=== PATIENT | female | born 1970 | race Caucasian/White ===

== ENCOUNTER 2016-09-10 21:53 | Emergency (ER) | payer BC ==
[~2016-09-10] VITALS: Ht 170.2 cm; Wt 59.0 kg
[~2016-09-10 21:53] MED LIST: BENZ100C2 PO; DOXY100C2 PO; LORA10TA3 PO; NAPR500T3 PO; RANI150T2 PO
[2016-09-10] MEDS ORDERED: FENTANYL PF 100 MCG/2 ML VIAL. IV PRN (22:15)
--- NOTE | 2016-09-10 22:18 | PHYS DOC ---
Past Medical History Past Medical History: No Pertinent History Past Surgical History: Tubal ligation, Other Additional Past Surgical Histo: Hip surgery, Rib Alcohol Use: None Drug Use: None Adult General Chief Complaint Chief Complaint: ABDOMINAL PAIN HPI HPI Patient is a 45 year old female who presents with sudden onset right lower quadrant abdominal pain. Patient states that her symptoms started tonight and have been intermittent. Patient states that she is getting sharp pains in her right lower quadrant which go up to 9 out of 10. Patient states while at rest they decreased to 2 out of 10. Patient states that as long as she remained still her symptoms seemed to improve, however when she attempts to move this makes her pain worse. Patient denies any associated fever, nausea, vomiting, shortness of breath, diarrhea, or bloody stools. Patient denies any history of similar symptoms. Patient has not taken any medication help with symptoms at this time. Patient has had a tubal ligation but denies any other abdominal surgeries. Review of Systems Review of Systems Constitutional: Denies fever or chills [] Eyes: Denies change in visual acuity, redness, or eye pain [] HENT: Denies nasal congestion or sore throat [] Respiratory: Denies cough or shortness of breath [] Cardiovascular: No additional information not addressed in HPI [] GI: Abdominal pain, denies nausea, vomiting, bloody stools or diarrhea [] : Denies dysuria or hematuria [] Musculoskeletal: Denies back pain or joint pain [] Integument: Denies rash or skin lesions [] Neurologic: Denies headache, focal weakness or sensory changes [] Current Medications Current Medications Current Medications Medications (Trade) Dose Ordered Sig/[facility] Start Time Stop Time Status Last Admin Dose Admin Fentanyl Citrate 50 mcg 50 mcg PRN Q15MIN PRN 09/10/16 22:15 09/11/16 22:14 09/10/16 22:29 50 MCG Info (Do NOT chart on this entry -- for MONITORING) 1 each PRN DAILY PRN 09/10/16 23:00 09/12/16 22:59 Iohexol (Omnipaque 300 Mg/ml) 75 ml 1X ONCE 09/10/16 23:30 09/10/16 23:31 DC 09/10/16 22:59 75 ML Ondansetron HCl (Zofran) 4 mg 1X ONCE 09/10/16 22:30 09/10/16 22:31 DC 09/10/16 22:27 4 MG Sodium Chloride (Iv Sodium Chloride 0.9% 1000ml Bag) 1,000 ml @ 1,000 mls/hr Q1H 09/10/16 22:30 09/10/16 23:29 DC 09/10/16 22:26 1,000 MLS/HR Allergies Allergies Allergies Coded Allergies Type Severity Reaction Last Updated Verified influenza virus vaccine, specific Allergy Severe Anaphylaxis 06/08/13 Yes amoxicillin Allergy Intermediate 09/10/16 Yes Physical Exam Physical Exam Constitutional: Alert, afebrile, appears in pain. [] HENT: Normocephalic, atraumatic, bilateral external ears normal, oropharynx moist, no oral exudates, nose normal. [] Eyes: PERRLA, EOMI, conjunctiva normal, no discharge. [] Neck: Normal range of motion, no tenderness, supple, no stridor. [] Cardiovascular: Tachycardia, regular rhythm, no murmur [] Lungs & Thorax: Bilateral breath sounds clear to auscultation [] Abdomen: Bowel sounds normal, soft, right lower quadrant tenderness to palpation with rebound tenderness, no masses, no pulsatile masses. [] Skin: Warm, dry, no erythema, no rash. [] Back: No tenderness, no CVA tenderness. [] Extremities: No tenderness, no cyanosis, no clubbing, ROM intact, no edema. [] Neurologic: Alert and oriented X 3, normal motor function, normal sensory function, no focal deficits noted. [] Current Patient Data Vital Signs Vital Signs Date Time Temp Pulse Resp B/P Pulse Ox O2 Delivery O2 Flow Rate FiO2 09/10/16 22:29 18 09/10/16 22:09 97.9 105 114/50 96 Room Air 97.9 Lab Values Laboratory Tests Test 09/10/16 22:10 White Blood Count 8.1x10^3/uL (4.0-11.0) Red Blood Count 4.77x10^6/uL (3.50-5.40) Hemoglobin 14.9g/dL (12.0-15.5) Hematocrit 43.9% (36.0-47.0) Mean Corpuscular Volume 92fL (79-100) Mean Corpuscular Hemoglobin 31pg (25-35) Mean Corpuscular Hemoglobin Concent 34g/dL (31-37) Red Cell Distribution Width 12.8% (11.5-14.5) Platelet Count 187x10^3/uL (140-400) Neutrophils (%) (Auto) 50% (31-73) Lymphocytes (%) (Auto) 37% (24-48) Monocytes (%) (Auto) 11% (0-9) H Eosinophils (%) (Auto) 2% (0-3) Basophils (%) (Auto) 1% (0-3) Neutrophils # (Auto) 4.0x10^3uL (1.8-7.7) Lymphocytes # (Auto) 3.0x10^3/uL (1.0-4.8) Monocytes # (Auto) 0.9x10^3/uL (0.0-1.1) Eosinophils # (Auto) 0.2x10^3/uL (0.0-0.7) Basophils # (Auto) 0.1x10^3/uL (0.0-0.2) Sodium Level 137mmol/L (136-145) Potassium Level 3.9mmol/L (3.5-5.1) Chloride Level 103mmol/L (98-107) Carbon Dioxide Level 30mmol/L (21-32) Anion Gap 4 (6-14) L Blood Urea Nitrogen 17mg/dL (7-20) Creatinine 0.8mg/dL (0.6-1.0) Estimated GFR (Cockcroft-Gault) 77.2 BUN/Creatinine Ratio 21 (6-20) H Glucose Level 100mg/dL (70-99) H Calcium Level 8.7mg/dL (8.5-10.1) Total Bilirubin 0.3mg/dL (0.2-1.0) Aspartate Amino Transferase (AST) 14U/L (15-37) L Alanine Aminotransferase (ALT) 17U/L (14-59) Alkaline Phosphatase 60U/L (46-116) Total Protein 7.1g/dL (6.4-8.2) Albumin 3.5g/dL (3.4-5.0) Albumin/Globulin Ratio 1.0 (1.0-1.7) Lipase 182U/L (73-393) Laboratory Tests 09/10/16 22:10 Laboratory Tests 09/10/16 22:10 EKG EKG Not performed [] Radiology/Procedures Radiology/Procedures [facility] [address] [place] [address] IMAGING REPORT Signed PATIENT: ARIELLE OJNES ACCOUNT: [id number] : 1970 LOCATION: ER AGE: 45 SEX: F EXAM STATUS: REG ER ORD. PHYSICIAN: SHEILA JENKINS MD REASON: right lower quadrant abdominal pain PROCEDURE: CT ABD PELV W/ IV CONTRST ONLY Examination: CT of the abdomen pelvis with IV contrast. HISTORY History of sudden onset of right lower quadrant pain. COMPARISON 01/20/2012. TECHNIQUE Axial CT images of the abdomen pelvis were performed with IV contrast. Coronal sagittal reformats were performed. Exposure: One or more of the following dose reduction technique were utilized for this examination: 1. Automated exposure control. 2.Adjustment of MA and /or KV according to patient size. 3. Use of iterative reconstruction technique. Findings: The visualized bibasilar lungs grossly appears unremarkable. No evidence of free air identified in the abdomen. The visualized liver, spleen, adrenals grossly appears unremarkable. The gallbladder is collapsed. The stomach is mildly distended. The visualized pancreas grossly appears unremarkable. The small bowel is nondilated. The appendix grossly appears unremarkable. Feces and gas noted in the colon The bilateral kidneys enhance symmetrically. Heterogeneous appearance of the uterus with a rounded structure identified in the uterus measures 6.2 centimeters probably fibroids. Urinary bladder is mildly distended. The caliber of the aorta grossly appears unremarkable. No evidence of lytic bony destructive lesion. Impression: 1. Partially visualized appendix grossly appears unremarkable. 2. Heterogeneous appearance of the uterus likely fibroid uterus. Ultrasound pelvis can be performed to exclude adnexal pathology. Electronically signed by: Trent Whittington (Sep 10, 2016 23:22:28) DICTATED and SIGNED BY: TRENT WHITTINGTON MD DATE: 09/10/162321 CC: SHEILA JENKINS MD; MARY ANNE DEGROOT MD ~ [] Course & Med Decision Making Course & Med Decision Making Pertinent Labs and Imaging studies reviewed. (See chart for details) Patient was given IV fentanyl, Zofran, Pepcid, and IV fluids. Patient's CT scan did not reveal evidence of an acute surgical cause of patient's symptoms. On reevaluation, patient states that she feels much better at this time. The patient states that she would like to go home. Advised patient follow-up with her primary doctor in the next 1-2 days and her return to the emergency department for any worsening symptoms. Patient was given [place] for prescription to help with any additional pain. Patient voiced understanding and was in agreement with treatment plan. Dragon Disclaimer Dragon Disclaimer This electronic medical record was generated, in whole or in part, using a voice recognition dictation system. Departure Departure Impression: Primary Impression: Abdominal pain Disposition: HOME, SELF-CARE Condition: IMPROVED Referrals: MARY ANNE DEGROOT MD (PCP) Patient Instructions: Abdominal Pain (Nonspecific) Additional Instructions: Follow-up Dr. Degroot in the next 1-2 days. Return to emergency department for any worsening symptoms. Scripts Hydrocodone/Apap 5-325 ([place] 5-325 Tablet)1 Each Tablet1-2 Tab PO Q4-6HRS PRN PAIN #20 TAB Prov:SHEILA JENKINS MD 09/10/16 Problem Qualifiers Primary Impression: Abdominal pain Abdominal location: right lower quadrant Qualified Code: R10.31 - Right lower quadrant pain SHEILA JENKINS MD Sep 10, 2016 22:18
[2016-09-10 22:23] LABS: BASO # 0.1 x10^3/uL (0.0-0.2); BASO % 1 % (0-3); EOS % 2 % (0-3); HEMATOCRIT 43.9 % (36.0-47.0); HEMOGLOBIN 14.9 g/dL (12.0-15.5); LYMPH % 37 % (24-48); MEAN CORPUSCULAR HEMOGLOBIN 31 pg (25-35); MEAN CORPUSCULAR HGB CONC 34 g/dL (31-37); MEAN CORPUSCULAR VOLUME 92 fL (79-100); MONO % 11 % (0-9); NEUT % 50 % (31-73); PLATELET COUNT 187 x10^3/uL (140-400); RED BLOOD COUNT 4.77 x10^6/uL (3.50-5.40); RED CELL DISTRIBUTION WIDTH 12.8 % (11.5-14.5); WHITE BLOOD COUNT 8.1 x10^3/uL (4.0-11.0)
[2016-09-10 22:30] LABS: CALCIUM 8.7 mg/dL (8.5-10.1); CREATININE 0.8 mg/dL (0.6-1.0); GFR 77.2; POTASSIUM 3.9 mmol/L (3.5-5.1)
[2016-09-10] MEDS ORDERED: ONDANSETRON PF 4 MG/2 ML VIAL. IV ONE (22:30)
[2016-09-10] MEDS ORDERED: IV NORMAL SALINE 1000ML BAG 1,000 ML IV SCH (22:30)
[2016-09-10 22:37] LABS: ALBUMIN 3.5 g/dL (3.4-5.0); TOTAL BILIRUBIN 0.3 mg/dL (0.2-1.0); TOTAL PROTEIN 7.1 g/dL (6.4-8.2)
[2016-09-10] MEDS ORDERED: CONTRAST GIVEN MC PRN (23:00)
--- NOTE | 2016-09-10 23:24 | RAD ---
Examination: CT of the abdomen pelvis with IV contrast. HISTORY History of sudden onset of right lower quadrant pain. COMPARISON 01/20/2012. TECHNIQUE Axial CT images of the abdomen pelvis were performed with IV contrast. Coronal sagittal reformats were performed. Exposure: One or more of the following dose reduction technique were utilized for this examination: 1. Automated exposure control. 2.Adjustment of MA and /or KV according to patient size. 3. Use of iterative reconstruction technique. Findings: The visualized bibasilar lungs grossly appears unremarkable. No evidence of free air identified in the abdomen. The visualized liver, spleen, adrenals grossly appears unremarkable. The gallbladder is collapsed. The stomach is mildly distended. The visualized pancreas grossly appears unremarkable. The small bowel is nondilated. The appendix grossly appears unremarkable. Feces and gas noted in the colon The bilateral kidneys enhance symmetrically. Heterogeneous appearance of the uterus with a rounded structure identified in the uterus measures 6.2 centimeters probably fibroids. Urinary bladder is mildly distended. The caliber of the aorta grossly appears unremarkable. No evidence of lytic bony destructive lesion. Impression: 1. Partially visualized appendix grossly appears unremarkable. 2. Heterogeneous appearance of the uterus likely fibroid uterus. Ultrasound pelvis can be performed to exclude adnexal pathology. Electronically signed by: Trent Whittington (Sep 10, 2016 23:22:28)
[2016-09-10] MEDS ORDERED: IOHEXOL 300 MG/ML 75 ML VIAL IV ONE (23:30)
[2016-09-10] MEDS ORDERED: HYDR-971 PO (23:40)
[2016-09-10 23:50] VITALS: BP 100/57
== END 2016-09-10 23:58 | disposition home or self-care (01) ==
LOC: ER 21:53
DX: R10.31 Right lower quadrant pain (principal); Z98.51 Tubal ligation status; Z88.1 Allergy status to other antibiotic agents; Z91.041 Radiographic dye allergy status
CPT/HCPCS: 74177; 80053; 83690; 85027; 96361; 96374; 96375; 99285; J2405; J3010; J7030; Q9967

== ENCOUNTER 2017-02-02 20:27 | Inpatient (IN) | payer BC ==
[~2017-02-02] VITALS: Ht 172.7 cm; Wt 70.4 kg
[~2017-02-02 20:27] MED LIST changes: +BENZ100C15 PO; -BENZ100C2 PO; +HYDR-971 PO
[2017-02-02 21:58] LABS: BASO % 0 % (0-3); EOS % 2 % (0-3); HEMATOCRIT 41.6 % (36.0-47.0); HEMOGLOBIN 13.9 g/dL (12.0-15.5); LYMPH # 2.6 x10^3/uL (1.0-4.8); LYMPH % 30 % (24-48); MEAN CORPUSCULAR HEMOGLOBIN 31 pg (25-35); MEAN CORPUSCULAR HGB CONC 34 g/dL (31-37); MEAN CORPUSCULAR VOLUME 93 fL (79-100); MONO % 10 % (0-9); NEUT % 58 % (31-73); PLATELET COUNT 179 x10^3/uL (140-400); RED BLOOD COUNT 4.45 x10^6/uL (3.50-5.40); RED CELL DISTRIBUTION WIDTH 13.7 % (11.5-14.5); WHITE BLOOD COUNT 8.9 x10^3/uL (4.0-11.0)
[2017-02-02] MEDS ORDERED: ALBUTEROL SULFATE 2.5 MG/3 ML NEBU. NEB ONE (22:00)
[2017-02-02] MEDS ORDERED: ONDANSETRON PF 4 MG/2 ML VIAL. IV ONE (22:00)
[2017-02-02 22:14] LABS: CALCIUM 8.5 mg/dL (8.5-10.1); CREATININE 0.6 mg/dL (0.6-1.0); GFR 107.2; POTASSIUM 3.7 mmol/L (3.5-5.1)
--- NOTE | 2017-02-02 22:14 | PHYS DOC ---
Past Medical History Past Medical History: Pneumonia Past Surgical History: Tubal ligation, Other Additional Past Surgical Histo: Hip surgery, Rib Additional Information: 1 PPD Alcohol Use: None Drug Use: None Adult General Chief Complaint Chief Complaint: CHEST PAIN HPI HPI Patient is a 46 year old female who presents with complaint of chest congestion , cough, and shortness of breath. Patient states that her symptoms have been worsening over the past 3 days. Patient states that she started with a head cold 4 days ago and states that it started and into her chest. Patient states that she has had persistent cough that has been nonproductive. Patient denies any significant past medical history except for previous history of pneumonia. Patient is an active smoker. Patient has not taken any medications except for ibuprofen to help with her symptoms. Patient denies associated fevers or substernal chest pain. Patient states that her chest discomfort worsens with cough. Patient admits to exertional dyspnea. Review of Systems Review of Systems Constitutional: Denies fever or chills [] Eyes: Denies change in visual acuity, redness, or eye pain [] HENT: Denies nasal congestion or sore throat [] Respiratory: Cough, chest congestion[] Cardiovascular: Chest pain, denies edema[] GI: Denies abdominal pain, nausea, vomiting, bloody stools or diarrhea [] : Denies dysuria or hematuria [] Musculoskeletal: Denies back pain or joint pain [] Integument: Denies rash or skin lesions [] Neurologic: Denies headache, focal weakness or sensory changes [] Current Medications Current Medications Current Medications Medications (Trade) Dose Ordered Sig/[facility] Start Time Stop Time Status Last Admin Dose Admin Albuterol Sulfate (Ventolin Neb Soln) 5 mg 1X ONCE 02/02/17 22:00 02/02/17 22:01 DC 02/02/17 22:12 5 MG Doxycycline Hyclate (Vibra-Tab) 100 mg 1X ONCE 02/02/17 23:30 02/02/17 23:31 DC 02/03/17 00:09 100 MG Fentanyl Citrate (Fentanyl 2ml Vial) 50 mcg PRN Q15MIN PRN 02/02/17 22:00 02/03/17 21:59 02/03/17 00:09 50 MCG Ondansetron HCl (Zofran) 4 mg 1X ONCE 02/02/17 22:00 02/02/17 22:01 DC 02/02/17 22:19 4 MG Prednisone (Prednisone) 50 mg 1X ONCE 02/02/17 23:30 02/02/17 23:31 DC 02/03/17 00:09 50 MG Sodium Chloride 1,000 ml @ 1,000 mls/hr Q1H 02/02/17 22:00 02/02/17 23:59 DC 02/02/17 23:25 1,000 MLS/HR Allergies Allergies Allergies Coded Allergies Type Severity Reaction Last Updated Verified influenza virus vaccine, specific Allergy Severe Anaphylaxis 06/08/13 Yes amoxicillin Allergy Intermediate 09/10/16 Yes Physical Exam Physical Exam Constitutional: Alert, afebrile, appears in moderate discomfort. [] HENT: Normocephalic, atraumatic, bilateral external ears normal, oropharynx moist, no oral exudates, nose normal. [] Eyes: PERRLA, EOMI, conjunctiva normal, no discharge. [] Neck: Normal range of motion, no tenderness, supple, no stridor. [] Cardiovascular: Tachycardia, regular rhythm, no murmur [] Lungs & Thorax: Mild to moderate ejection of air movement bilaterally, expiratory wheezes bilaterally, rales[] Abdomen: Bowel sounds normal, soft, no tenderness, no masses, no pulsatile masses. [] Skin: Warm, dry, no erythema, no rash. [] Back: No tenderness, no CVA tenderness. [] Extremities: No tenderness, no cyanosis, no clubbing, ROM intact, no edema. [] Neurologic: Alert and oriented X 3, normal motor function, normal sensory function, no focal deficits noted. [] Current Patient Data Vital Signs Vital Signs Date Time Temp Pulse Resp B/P (MAP) Pulse Ox O2 Delivery O2 Flow Rate FiO2 02/02/17 22:44 33 94 Room Air 02/02/17 22:30 116 102/51 (68) 02/02/17 20:47 98.0 98.0 Lab Values Laboratory Tests Test 02/02/17 21:10 White Blood Count 8.9 x10^3/uL (4.0-11.0) Red Blood Count 4.45 x10^6/uL (3.50-5.40) Hemoglobin 13.9 g/dL (12.0-15.5) Hematocrit 41.6 % (36.0-47.0) Mean Corpuscular Volume 93 fL (79-100) Mean Corpuscular Hemoglobin 31 pg (25-35) Mean Corpuscular Hemoglobin Concent 34 g/dL (31-37) Red Cell Distribution Width 13.7 % (11.5-14.5) Platelet Count 179 x10^3/uL (140-400) Neutrophils (%) (Auto) 58 % (31-73) Lymphocytes (%) (Auto) 30 % (24-48) Monocytes (%) (Auto) 10 % (0-9) H Eosinophils (%) (Auto) 2 % (0-3) Basophils (%) (Auto) 0 % (0-3) Neutrophils # (Auto) 5.2 x10^3uL (1.8-7.7) Lymphocytes # (Auto) 2.6 x10^3/uL (1.0-4.8) Monocytes # (Auto) 0.9 x10^3/uL (0.0-1.1) Eosinophils # (Auto) 0.2 x10^3/uL (0.0-0.7) Basophils # (Auto) 0.0 x10^3/uL (0.0-0.2) D-Dimer (Shameka) 0.32 ug/mlFEU (0.00-0.50) Sodium Level 141 mmol/L (136-145) Potassium Level 3.7 mmol/L (3.5-5.1) Chloride Level 104 mmol/L (98-107) Carbon Dioxide Level 28 mmol/L (21-32) Anion Gap 9 (6-14) Blood Urea Nitrogen 8 mg/dL (7-20) Creatinine 0.6 mg/dL (0.6-1.0) Estimated GFR (Cockcroft-Gault) 107.2 BUN/Creatinine Ratio 13 (6-20) Glucose Level 86 mg/dL (70-99) Calcium Level 8.5 mg/dL (8.5-10.1) Total Bilirubin 0.2 mg/dL (0.2-1.0) Aspartate Amino Transferase (AST) 13 U/L (15-37) L Alanine Aminotransferase (ALT) 23 U/L (14-59) Alkaline Phosphatase 63 U/L (46-116) Total Protein 7.0 g/dL (6.4-8.2) Albumin 3.7 g/dL (3.4-5.0) Albumin/Globulin Ratio 1.1 (1.0-1.7) Laboratory Tests 02/02/17 21:10 Laboratory Tests 02/02/17 21:10 EKG EKG Interpreted by me: Heart rate 109, sinus tachycardia, normal intervals, normal axis, no acute ST/T-wave abnormalities present[] Radiology/Procedures Radiology/Procedures Two-view chest x-ray interpreted by me: Stable left costophrenic blunting, no new infiltrates or effusions, normal cardiac silhouette Course & Med Decision Making Course & Med Decision Making Pertinent Labs and Imaging studies reviewed. (See chart for details) Patient was given IV fluids, albuterol breathing treatments, prednisone, and doxycycline in the emergency department. The patient's lab work is unremarkable. Evaluation status post treatment shows patient with an O2 sat of 85%. Patient also states that she is still having significant shortness of breath with minimal exertion but is holding stable while at rest. The patient was started on supplemental oxygen. Patient will be admitted the hospital for treatment of acute hypoxic respiratory failure secondary to reactive airway disease. Patient admitted to Dr. Muhammad. Bar Disclaimer Bar Disclaimer This electronic medical record was generated, in whole or in part, using a voice recognition dictation system. Departure Departure Impression: Primary Impression: Acute respiratory failure with hypoxia Disposition: ADMITTED INPATIENT Condition: STABLE Referrals: MARY ANNE DEGROOT MD (PCP) SHEILA JENKINS MD Feb 02, 2017 22:14
[2017-02-02] MEDS: IV NORMAL SALINE 1000ML BAG 1,000 ML IV SCH ×2 (22:18→23:25)
[2017-02-02 22:19] LABS: ALBUMIN 3.7 g/dL (3.4-5.0); ALBUMIN/GLOBULIN RATIO 1.1 (1.0-1.7); TOTAL BILIRUBIN 0.2 mg/dL (0.2-1.0)
[2017-02-02] MEDS: fentaNYL PF VIAL 100 MCG/2 ML VIAL IV PRN ×2 (22:24→22:44)
[2017-02-02] MEDS ORDERED: predniSONE 20 MG TABLET PO ONE (23:30)
[2017-02-02] MEDS ORDERED: DOXYCYCLINE HYCLATE 100 MG TABLET PO ONE (23:30)
[2017-02-03] MEDS: fentaNYL PF VIAL 100 MCG/2 ML VIAL IV PRN (00:09)
[2017-02-03 00:50] VITALS: BP 106/48
[2017-02-03] MEDS ORDERED: fentaNYL PF VIAL 100 MCG/2 ML VIAL IV PRN (01:00)
[2017-02-03] MEDS ORDERED: ONDANSETRON PF 4 MG/2 ML VIAL. IV PRN (01:00)
[2017-02-03] MEDS: ACETAMINOPHEN 325 MG TABLET. PO PRN ×2 (01:03→05:11)
[2017-02-03] MEDS: IV NORMAL SALINE 1000ML BAG 1,000 ML IV SCH ×3 (01:03→14:09)
[2017-02-03 03:00] VITALS: BP 98/42
[2017-02-03] MEDS ORDERED: IPRATRPIUM/ALBUTEROL 0.5/2.5MG 3 ML NEBU. ONE (06:17)
--- NOTE | 2017-02-03 06:23 | EKG ---
[facility] [address] [place] [address] Test Date: 2017-02-02 Test Time: 21:25:21 Pat Name: ARIELLE JONES Department: Room: Gender: F [place]: : 1970 Requested By: SHEILA JENKINS Order Number: [id number] Reading MD: Measurements Intervals [place] Rate: 109 P: 82 CT: 154 QRS: 54 QRSD: 82 T: 71 QT: 330 QTc: 446 Interpretive Statements SINUS TACHYCARDIA LEFT ATRIAL ABNORMALITY INCOMPLETE RIGHT BUNDLE BRANCH BLOCK QRS(T) CONTOUR ABNORMALITY CONSIDER ANTEROSEPTAL MYOCARDIAL DAMAGE T ABNORMALITY IN ANTERIOR LEADS ABNORMAL ECG RI6.01 No previous ECG available for comparison
[2017-02-03 07:00] VITALS: BP 110/46
--- NOTE | 2017-02-03 07:29 | RAD ---
Chest, 2 views, 02/02/2017: History: Cough Comparison is made to a study from 06/07/2013. The heart size and pulmonary vascularity are normal. There is unchanged blunting of the left lateral costophrenic angle compatible with scarring. No acute infiltrate is seen. No pleural fluid is evident. Mild spurring is present in the spine. IMPRESSION: No acute abnormality is detected.
[2017-02-03] MEDS: IPRATRPIUM/ALBUTEROL 0.5/2.5MG 3 ML NEBU. NEB SCH ×2 (07:33→11:37)
[2017-02-03] MEDS ORDERED: IBUP-1027 PO (07:59)
[2017-02-03] MEDS ORDERED: PRED-220 PO (09:00)
[2017-02-03] MEDS ORDERED: DOXYCYCLINE HYCLATE 100 MG TABLET PO SCH (09:00)
[2017-02-03] MEDS ORDERED: predniSONE 20 MG TABLET PO SCH (09:00)
[2017-02-03] MEDS ORDERED: IPRA3AMP NEB (09:00)
[2017-02-03] MEDS ORDERED: HYDROcodone/APAP 5/325MG 1 TAB TABLET PO PRN (09:00)
[2017-02-03] MEDS ORDERED: DOXY100T PO (09:00)
[2017-02-03] MEDS ORDERED: IBUPROFEN 400 MG TABLET. PO PRN (09:00)
--- NOTE | 2017-02-03 09:06 | PDOC1 ---
History and Physical Date of Admission Date of Admission DATE: 02/03/17 TIME: 09:00 Identification/Chief Complaint Chief Complaint not getting enough treatment overnight Problems: Source Source: Chart review, Patient History of Present Illness History of Present Illness Patient is a 46 year old female, she is upset about lack of Nebs overnight, and about the food this AM and about her prior hypoxia and not getting 02 placed when her Sa02 was 90%, I cannot get past much history as she is upset. Prior history reviewed of 3 days cough, and shortness of breath. Headache, acute on chronic, BARRIENTOS due to coughing, she reports only seeing Dr. Gallego when she is sick, and has not seen him for 1 year, she has a nebulizer at home, and does think she has COPD. Her persistent cough has been nonproductive. Patient is an active smoker. no meds to help with sx, BARRIENTOS 12/24 Past Medical History Cardiovascular: No pertinent hx Pulmonary: COPD (maybe) GI: No pertinent hx Heme/Onc: No pertinent hx Hepatobiliary: No pertinent hx Psych: No pertinent hx Rheumatologic: No pertinent hx Infectious disease: No pertinent hx ENT: No pertinent hx Renal/: No pertinent hx Endocrine: No pertinent hx Family History Family History: No Significant Social History Smoke: <1 pack per day ALCOHOL: none Drugs: None Current Problem List Problem List Problems Medical Problems: (1) Acute respiratory failure with hypoxia Status: Acute Problems: Current Medications Current Medications Current Medications Sodium Chloride 1,000 ml @ 1,000 mls/hr Q1H IV Last administered on 02/02/17 23:25; Start 02/02/17 at 22:00; Stop 02/02/17 at 23:59; Status DC Fentanyl Citrate (Fentanyl 2ml Vial) 50 mcg PRN Q15MIN PRN IV PAIN GREATER THAN 3/10 Last administered on 02/03/17 00:09; Start 02/02/17 at 22:00; Stop at 02:00; Status DC Albuterol Sulfate (Ventolin Neb Soln) 5 mg 1X ONCE NEB Last administered on 22:12; Start 02/02/17 at 22:00; Stop 02/02/17 at 22:01; Status DC Ondansetron HCl (Zofran) 4 mg 1X ONCE IV Last administered on 02/02/17 22:19 ; Start 02/02/17 at 22:00; Stop 02/02/17 at 22:01; Status DC Doxycycline Hyclate (Vibra-Tab) 100 mg 1X ONCE PO Last administered on 00:09; Start 02/02/17 at 23:30; Stop 02/02/17 at 23:31; Status DC Prednisone (Prednisone) 50 mg 1X ONCE PO Last administered on 02/03/17 00:09 ; Start 02/02/17 at 23:30; Stop 02/02/17 at 23:31; Status DC Ondansetron HCl (Zofran) 4 mg PRN Q8HRS PRN IV NAUSEA/VOMITING; Start 02/03/17 at 01:00; Stop 02/04/17 at 00:59 Fentanyl Citrate (Fentanyl 2ml Vial) 50 mcg PRN Q2HR PRN IV SEVERE PAIN; Start 02/03/17 at 01:00; Stop 02/04/17 at 00:59 Sodium Chloride 1,000 ml @ 150 mls/hr Q6H40M IV Last administered on 08:46; Start 02/03/17 at 00:49; Stop 02/04/17 at 00:48 Acetaminophen (Tylenol) 650 mg PRN Q4HRS PRN PO FEVER Last administered on 02/03 05:11; Start 02/03/17 at 01:00; Stop 02/04/17 at 00:59 Albuterol/ Ipratropium (Duoneb) 3 ml RTQID NEB Last administered on 02/03/17 07:33; Start 02/03/17 at 08:00; Stop 02/04/17 at 07:59 Doxycycline Hyclate (Vibra-Tab) 100 mg BID PO Last administered on 02/03/17 08 :48; Start 02/03/17 at 09:00 Prednisone (Prednisone) 50 mg DAILY PO Last administered on 02/03/17 08:47; Start 02/03/17 at 09:00 Albuterol/ Ipratropium (Duoneb) 3 ml STK-MED ONCE .ROUTE ; Start 02/03/17 at 06: 17; Stop 02/03/17 at 06:18; Status DC Acetaminophen/ Hydrocodone Bitart (Lortab 5/325) 1 tab Q4HRS PRN PO PAIN; Start 02/03/17 at 09:00 Ibuprofen (Motrin) 400 mg PRN Q6HRS PRN PO headaches; Start 02/03/17 at 09:00 Albuterol/ Ipratropium (Duoneb) 3 ml Q4HRS PRN NEB dyspnea; Start 02/03/17 at 09:00; Status UNV Active Scripts Active [place] 5-325 Tablet (Acetaminophen/Hydrocodone Bitart) 1 Each Tablet 1-2 Tab PO Q4-6HRS PRN Reported Ibuprofen 400 Mg Tablet 400 Mg PO PRN Q6HRS PRN Allergies Allergies: Coded Allergies: influenza virus vaccine, specific (Verified Allergy, Severe, Anaphylaxis, 06/08/13) amoxicillin (Verified Allergy, Intermediate, 09/10/16) ROS General: No: Chills, Night Sweats, Fatigue, Malaise, Appetite, Other PSYCHOLOGICAL ROS: No: Anxiety, Behavioral Disorder, Concentration difficultie , Decreased libido, Depression, Disorientation, Hallucinations, Hostility, Irritablity, Memory difficulties, Mood Swings, Obsessive thoughts, Physical abuse, Sexual abuse, Sleep disturbances, Suicidal ideation, Other Eyes: No Blurry vision, No Decreased vision, No Double vision, No Dry eyes, No Excessive tearing, No Eye Pain, No Itchy Eyes, No Loss of vision, No Photophobia , No Scotomata, No Uses contacts, No Uses glasses, No Other HEENT: YES: Heacaches, No: Visual Changes, Hearing change, Nasal congestion, Nasal discharge, Oral lesions, Sinus pain, Sore Throat, Epistaxis, Sneezing, Snoring, Tinnitus, Vertigo, Vocal changes, Other Respiratory: YES: Cough, Pleuritic Pain, SOB with excertion, Tachypnea, Wheezing, No: Hemoptysis, Orthopnea, Shortness of breath, Sputum Changes, Stridor, Other Cardiovascular: No Chest Pain, No Palpitations, No Orthopnea, No Paroxysmal Noc. Dyspnea, No Edema, No Lt Headedness, No Other Gastrointestinal: No Nausea, No Vomiting, No Abdominal Pain, No Diarrhea, No Constipation, No Melena, No Hematochezia, No Other Genitourinary: No Dysuria, No Frequency, No Incontinence, No Hematuria, No Retention, No Discharge, No Urgency, No Pain, No Flank Pain, No Other, No , No , No , No , No , No , No Musculoskeletal: No Gait Disturbance, No Joint Pain, No Joint Stiffness, No Joint Swelling, No Muscle Pain, No Muscular Weakness, No Pain In:, No Swelling In:, No Other Neurological: No Behavorial Changes, No Bowel/Bladder ControlChng, No Confusion , No Dizziness, No Gait Disturbance, No Headaches, No Impaired Coord/balance, No Memory Loss, No Numbness/Tingling, No Seizures, No Speech Problems, No Tremors, No Visual Changes, No Weakness, No Other Skin: No Dry Skin, No Eczema, No Hair Changes, No Lumps, No Mole Changes, No Mottling, No Nail Changes, No Pruritus, No Rash, No Skin Lesion Changes, No Other, No Acne Physical Exam General: Alert, Oriented X3, Cooperative, mild distress HEENT: PERRLA, Mucous membr. moist/pink Lungs: Normal air movement Heart: no gallops, no murmurs Extremities: No edema Neuro: Sensation intact Psych/Mental Status: Other (agitated) Vitals Vitals Vital Signs Date Time Temp Pulse Resp B/P (MAP) Pulse Ox O2 Delivery O2 Flow Rate FiO2 02/03/17 07:33 92 Nasal Cannula 2.0 02/03/17 03:00 97.5 87 18 98/42 (60) 97.5 Labs Labs Laboratory Tests Test 02/02/17 21:10 White Blood Count 8.9 x10^3/uL (4.0-11.0) Red Blood Count 4.45 x10^6/uL (3.50-5.40) Hemoglobin 13.9 g/dL (12.0-15.5) Hematocrit 41.6 % (36.0-47.0) Mean Corpuscular Volume 93 fL (79-100) Mean Corpuscular Hemoglobin 31 pg (25-35) Mean Corpuscular Hemoglobin Concent 34 g/dL (31-37) Red Cell Distribution Width 13.7 % (11.5-14.5) Platelet Count 179 x10^3/uL (140-400) Neutrophils (%) (Auto) 58 % (31-73) Lymphocytes (%) (Auto) 30 % (24-48) Monocytes (%) (Auto) 10 % (0-9) Eosinophils (%) (Auto) 2 % (0-3) Basophils (%) (Auto) 0 % (0-3) Neutrophils # (Auto) 5.2 x10^3uL (1.8-7.7) Lymphocytes # (Auto) 2.6 x10^3/uL (1.0-4.8) Monocytes # (Auto) 0.9 x10^3/uL (0.0-1.1) Eosinophils # (Auto) 0.2 x10^3/uL (0.0-0.7) Basophils # (Auto) 0.0 x10^3/uL (0.0-0.2) D-Dimer (Shameka) 0.32 ug/mlFEU (0.00-0.50) Sodium Level 141 mmol/L (136-145) Potassium Level 3.7 mmol/L (3.5-5.1) Chloride Level 104 mmol/L (98-107) Carbon Dioxide Level 28 mmol/L (21-32) Anion Gap 9 (6-14) Blood Urea Nitrogen 8 mg/dL (7-20) Creatinine 0.6 mg/dL (0.6-1.0) Estimated GFR (Cockcroft-Gault) 107.2 BUN/Creatinine Ratio 13 (6-20) Glucose Level 86 mg/dL (70-99) Calcium Level 8.5 mg/dL (8.5-10.1) Total Bilirubin 0.2 mg/dL (0.2-1.0) Aspartate Amino Transf (AST/SGOT) 13 U/L (15-37) Alanine Aminotransferase (ALT/SGPT) 23 U/L (14-59) Alkaline Phosphatase 63 U/L (46-116) Total Protein 7.0 g/dL (6.4-8.2) Albumin 3.7 g/dL (3.4-5.0) Albumin/Globulin Ratio 1.1 (1.0-1.7) Laboratory Tests Test 02/02/17 21:10 White Blood Count 8.9 x10^3/uL (4.0-11.0) Red Blood Count 4.45 x10^6/uL (3.50-5.40) Hemoglobin 13.9 g/dL (12.0-15.5) Hematocrit 41.6 % (36.0-47.0) Mean Corpuscular Volume 93 fL (79-100) Mean Corpuscular Hemoglobin 31 pg (25-35) Mean Corpuscular Hemoglobin Concent 34 g/dL (31-37) Red Cell Distribution Width 13.7 % (11.5-14.5) Platelet Count 179 x10^3/uL (140-400) Neutrophils (%) (Auto) 58 % (31-73) Lymphocytes (%) (Auto) 30 % (24-48) Monocytes (%) (Auto) 10 % (0-9) Eosinophils (%) (Auto) 2 % (0-3) Basophils (%) (Auto) 0 % (0-3) Neutrophils # (Auto) 5.2 x10^3uL (1.8-7.7) Lymphocytes # (Auto) 2.6 x10^3/uL (1.0-4.8) Monocytes # (Auto) 0.9 x10^3/uL (0.0-1.1) Eosinophils # (Auto) 0.2 x10^3/uL (0.0-0.7) Basophils # (Auto) 0.0 x10^3/uL (0.0-0.2) D-Dimer (Shameka) 0.32 ug/mlFEU (0.00-0.50) Sodium Level 141 mmol/L (136-145) Potassium Level 3.7 mmol/L (3.5-5.1) Chloride Level 104 mmol/L (98-107) Carbon Dioxide Level 28 mmol/L (21-32) Anion Gap 9 (6-14) Blood Urea Nitrogen 8 mg/dL (7-20) Creatinine 0.6 mg/dL (0.6-1.0) Estimated GFR (Cockcroft-Gault) 107.2 BUN/Creatinine Ratio 13 (6-20) Glucose Level 86 mg/dL (70-99) Calcium Level 8.5 mg/dL (8.5-10.1) Total Bilirubin 0.2 mg/dL (0.2-1.0) Aspartate Amino Transf (AST/SGOT) 13 U/L (15-37) Alanine Aminotransferase (ALT/SGPT) 23 U/L (14-59) Alkaline Phosphatase 63 U/L (46-116) Total Protein 7.0 g/dL (6.4-8.2) Albumin 3.7 g/dL (3.4-5.0) Albumin/Globulin Ratio 1.1 (1.0-1.7) VTE Prophylaxis Ordered VTE Prophylaxis Devices: Yes VTE Pharmacological Prophylaxi: No Assessment/Plan Assessment/Plan SIRS, tachypnea and tachycardia, related to COPD, AE w. hypoxia COPD exacerbation, pcn allergy, doxy PO, steroids, nebs PULM consult tobaccoism ongoign headache, known prior, w exacerbation admit obs Pt request DC this AM, will try to accomodate, 6 min walk ordered, doxy and nebs and pred taper, advair I rec. f/u in pulm clinic, need PFT, accurate diagnosis CALE APODACA MD Feb 03, 2017 09:05
[2017-02-03] MEDS ORDERED: ALBUTEROL SULFATE 2.5 MG/3 ML NEBU. NEB PRN (09:15)
[2017-02-03 11:00] VITALS: BP 105/58
[2017-02-03] MEDS ORDERED: FLUT1DIS3 IH (12:19)
--- NOTE | 2017-02-03 13:35 | PDOC ---
Provider Note Provider Note dictated JOE SALGADO MD Feb 03, 2017 13:35
--- NOTE | 2017-02-03 13:50 | CONS ---
DATE OF CONSULTATION: ATTENDING PHYSICIAN: Dr. Cohen. REASON FOR CONSULTATION: Dyspnea, cough. HISTORY OF PRESENT ILLNESS: The patient is a pleasant 46-year-old female who has been a smoker for 20 years, 1 pack per day. She drives a school bus. She presented to the hospital with complaint of a cough and some shortness of breath. The patient states she started with a head cold and had lots of allergies, but then in the last 48 hours she started to have a cough, which was initially productive of thick yellow sputum. No fever, no chills. She had postnasal drainage. She was seen in the Emergency Room because of persistent coughing. Chest x-ray was clear. She was started on antibiotics and she is starting to feel better and wants to go home. She still smokes 1 pack a day. No history of deep vein thrombosis or pulmonary embolism. She did have a trauma to her left ribcage and had a mini thoracotomy many years ago. PAST MEDICAL HISTORY: History of tobacco use, suspect underlying COPD. PAST SURGICAL HISTORY: No recent surgery except past history of left thoracotomy for a trauma to her rib cage. ALLERGIES: AMOXICILLIN, INFLUENZA VIRUS VACCINE. SOCIAL HISTORY: One pack per day for last 20 years. REVIEW OF SYSTEMS: Twelve-point system obtained. Pertinent positives discussed in my history of present illness, otherwise noncontributory. All systems that were negative were reviewed as well. MEDICATIONS: Reviewed as listed in the [facility]AD. SOCIAL HISTORY: Smoker for 20 years, 1 pack per day. PHYSICAL EXAMINATION: VITAL SIGNS: Stable, afebrile, pulse ox 91% on 2 liters and 90% on room air. HEENT: Sclerae nonicteric. NECK: Supple. LUNGS: Had a few occasional rhonchi posteriorly. CARDIOVASCULAR: Regular rate. ABDOMEN: Soft. EXTREMITIES: With no pitting edema. LABORATORY DATA: Reviewed. White cell count 8.9, hemoglobin 13.9, platelets of 179. Chemistries were within normal limits. D-dimer 0.32. Chest x-ray was clear. IMPRESSION: 1. Acute purulent bronchitis with no definite pneumonia on the chest x-ray. 2. Mild exacerbation of chronic obstructive pulmonary disease, triggered by acute bronchitis. She has ongoing tobaccoism. RECOMMENDATIONS: 1. The patient feels clinically better. She could be discharged home on p.o. antibiotics. 2. Steroid taper. 3. Smoking cessation counseling provided. She plans to cut back on cigarettes. 4. She is updated on pneumonia vaccine. JOE SALGADO MD DR: TULIO/ketty JOB#: [id number] / [id number]
== END 2017-02-03 14:55 | disposition home or self-care (01) | DRG 189 ==
LOC: ER 20:27 → 5 NORTH 23:40
PROVIDERS: ADMIT Internal Medicine; ATTEND Internal Medicine
DX: J96.01 Acute respiratory failure with hypoxia (principal); J44.0 Chronic obstructive pulmonary disease with (acute) lower respiratory infection; R65.10 Systemic inflammatory response syndrome (SIRS) of non-infectious origin without acute organ dysfunction; J44.1 Chronic obstructive pulmonary disease with (acute) exacerbation; F17.210 Nicotine dependence, cigarettes, uncomplicated; J20.9 Acute bronchitis, unspecified; Z87.01 Personal history of pneumonia (recurrent); Z88.0 Allergy status to penicillin; Z98.51 Tubal ligation status; Z88.1 Allergy status to other antibiotic agents; Z88.7 Allergy status to serum and vaccine
CPT/HCPCS: 36415; 71020; 80053; 85025; 85379; 93005; 94250; 94620; 94640; 94760; 96361; 96374; 96375; 99406; J2405; J3010; J7030; J7512; J7613; J7620; 99285-25

== ENCOUNTER 2017-10-14 19:40 | Inpatient (IN) | payer BC ==
[2017-10-14] MEDS: IPRATRPIUM/ALBUTEROL 0.5/2.5MG 3 ML NEBU. NEB (20:22)
[2017-10-14 20:42] LABS: BASO % 0 % (0-3); EOS % 0 % (0-3); HEMATOCRIT 40.4 % (36.0-47.0); HEMOGLOBIN 13.8 g/dL (12.0-15.5); LYMPH # 0.5 x10^3/uL (1.0-4.8); LYMPH % 4 % (24-48); MEAN CORPUSCULAR HEMOGLOBIN 32 pg (25-35); MEAN CORPUSCULAR HGB CONC 34 g/dL (31-37); MEAN CORPUSCULAR VOLUME 92 fL (79-100); MONO # 0.4 x10^3/uL (0.0-1.1); MONO % 4 % (0-9); NEUT # 10.5 x10^3uL (1.8-7.7); NEUT % 92 % (31-73); PLATELET COUNT 158 x10^3/uL (140-400); RED CELL DISTRIBUTION WIDTH 13.8 % (11.5-14.5); WHITE BLOOD COUNT 11.5 x10^3/uL (4.0-11.0)
[2017-10-14] MEDS: ONDANSETRON PF 4 MG/2 ML VIAL. IV (20:42)
[2017-10-14] MEDS: methylPREDNISolone SOD SUCC PF 125 MG/2 ML VIAL. IV (20:42)
[2017-10-14] MEDS: MORPHINE SULFATE 4 MG/ML DISP.SYRIN. IV (20:43)
[2017-10-14 20:45] LABS: ADD MAN DIFF? YES
[2017-10-14 21:02] LABS: LACTIC ACID 3.7 mmol/L (0.4-2.0)
[2017-10-14 21:10] LABS: % BANDS 4 % (0-9); % LYMPHS 4 % (24-48); % MONOS 2 % (0-10); % SEGS 90 % (35-66)
[2017-10-14 21:11] LABS: PLT ESTIMATE ADEQUATE (ADEQUATE)
[2017-10-14 21:14] LABS: ANION GAP 13 (6-14); BLOOD UREA NITROGEN 11 mg/dL (7-20); BUN/CREATININE RATIO 12 (6-20); CALCIUM 8.5 mg/dL (8.5-10.1); CARBON DIOXIDE 25 mmol/L (21-32); CHLORIDE 100 mmol/L (98-107); CREATININE 0.9 mg/dL (0.6-1.0); GFR 66.8; GLUCOSE 225 mg/dL (70-99); SODIUM 138 mmol/L (136-145)
[2017-10-14 21:21] LABS: ALBUMIN 3.2 g/dL (3.4-5.0); ALBUMIN/GLOBULIN RATIO 0.9 (1.0-1.7); ALK PHOS 57 U/L (46-116); ALT (SGPT) 17 U/L (14-59); AST (SGOT) 16 U/L (15-37); TOTAL BILIRUBIN 0.2 mg/dL (0.2-1.0); TOTAL PROTEIN 6.6 g/dL (6.4-8.2)
[2017-10-14 21:21] LABS: TROPONINI < 0.017 ng/mL (0.000-0.055)
[2017-10-14] MEDS: IV NORMAL SALINE 1000ML BAG 1,000 ML IV ×2 (21:27→23:52)
[2017-10-14 21:30] LABS: BILIRUBIN,URINE NEGATIVE (NEG); CLARITY,URINE CLEAR; COLOR,URINE YELLOW; GLUCOSE,URINE 250 mg/dL (NEG); NITRITE,URINE NEGATIVE (NEG); PH,URINE 5.5; PROTEIN,URINE NEGATIVE (NEG-TRACE); UROBILINOGEN,URINE 0.2 mg/dL (0.2 mg/dL)
[2017-10-14] MEDS ORDERED: ONDANSETRON PF 4 MG/2 ML VIAL. IV (21:30)
[2017-10-14] MEDS ORDERED: fentaNYL PF VIAL 100 MCG/2 ML VIAL IV (21:30)
[2017-10-14 21:41] LABS: BACTERIA,URINE FEW /HPF (0-FEW); RBC,URINE 0 /HPF (0-2); SQUAMOUS EPITHELIAL CELL,UR OCC /LPF; WBC,URINE OCC /HPF (0-4)
[2017-10-14] MEDS ORDERED: DEXTROSE 50% 25 GM / 50ML DISP.SYRIN. IV (22:45)
[2017-10-14] MEDS: AZITHROMYCIN 250 MG TABLET. PO (23:15)
[2017-10-15] MEDS: POTASSIUM CHLORIDE 20 MEQ TABLET.ER. PO ×2 (00:07→08:43)
[2017-10-15] MEDS: guaiFENesin DM 200MG/20MG 10 ML SYRUP PO ×4 (00:09→21:37)
[2017-10-15] MEDS: NICOTINE 21MG PATCH. TD (00:09)
[2017-10-15 00:15] LABS: POC GLUCOSE 177 mg/dL (70-99)
[2017-10-15 01:50] LABS: LACTIC ACID 1.8 mmol/L (0.4-2.0)
[2017-10-15 03:24] LABS: ADD MAN DIFF? NO
[2017-10-15 03:34] LABS: BASO % 0 % (0-3); EOS % 0 % (0-3); HEMATOCRIT 37.6 % (36.0-47.0); HEMOGLOBIN 12.9 g/dL (12.0-15.5); LYMPH # 0.5 x10^3/uL (1.0-4.8); LYMPH % 5 % (24-48); MEAN CORPUSCULAR HEMOGLOBIN 32 pg (25-35); MEAN CORPUSCULAR HGB CONC 34 g/dL (31-37); MEAN CORPUSCULAR VOLUME 92 fL (79-100); MONO # 0.3 x10^3/uL (0.0-1.1); MONO % 3 % (0-9); NEUT # 10.1 x10^3uL (1.8-7.7); NEUT % 92 % (31-73); PLATELET COUNT 140 x10^3/uL (140-400); RED BLOOD COUNT 4.07 x10^6/uL (3.50-5.40); RED CELL DISTRIBUTION WIDTH 13.4 % (11.5-14.5); WHITE BLOOD COUNT 10.9 x10^3/uL (4.0-11.0)
[2017-10-15 03:45] LABS: ANION GAP 8 (6-14); BLOOD UREA NITROGEN 11 mg/dL (7-20); CARBON DIOXIDE 27 mmol/L (21-32); CHLORIDE 104 mmol/L (98-107); CREATININE 0.7 mg/dL (0.6-1.0); GFR 89.3; GLUCOSE 161 mg/dL (70-99); POTASSIUM 3.6 mmol/L (3.5-5.1); SODIUM 139 mmol/L (136-145)
[2017-10-15] MEDS: ALBUTEROL SULFATE 2.5 MG/3 ML NEBU. NEB (04:50)
[2017-10-15] MEDS: HYDROcodone/CHLORPHEN POLIS 5 ML SUS.ER.12H PO ×2 (06:00→23:58)
[2017-10-15] MEDS: ACETAMINOPHEN 325 MG TABLET. PO ×3 (06:39→20:36)
[2017-10-15] MEDS: IPRATRPIUM/ALBUTEROL 0.5/2.5MG 3 ML NEBU. NEB ×4 (07:21→21:00)
[2017-10-15] MEDS: BUDESONIDE 0.5 MG/2 ML NEBU. NEB ×2 (07:21→21:00)
[2017-10-15 08:35] LABS: POC GLUCOSE 166 mg/dL (70-99)
[2017-10-15] MEDS: BENZONATATE 100 MG CAPSULE. PO ×3 (08:42→20:36)
[2017-10-15] MEDS: AZITHROMYCIN 250 MG TABLET. PO (08:42)
[2017-10-15] MEDS: methylPREDNISolone SOD SUCC PF 40 MG/ML VIAL. IV ×2 (08:42→20:37)
[2017-10-15] MEDS: INSULIN LISPRO 300 UNITS/3 ML INSULN.PEN. SQ ×4 (08:47→20:43)
[2017-10-15 11:35] LABS: POC GLUCOSE 114 mg/dL (70-99)
[2017-10-15] MEDS: LACTOBACILLUS RHAMNOSUS GG 1 CAPSULE. PO ×2 (15:36→20:36)
[2017-10-15 17:28] LABS: POC GLUCOSE 150 mg/dL (70-99)
[2017-10-15 20:14] LABS: POC GLUCOSE 130 mg/dL (70-99)
[2017-10-16] MEDS: INSULIN LISPRO 300 UNITS/3 ML INSULN.PEN. SQ ×4 (07:30→21:00)
[2017-10-16] MEDS: IPRATRPIUM/ALBUTEROL 0.5/2.5MG 3 ML NEBU. NEB ×5 (07:37→22:00)
[2017-10-16] MEDS: BUDESONIDE 0.5 MG/2 ML NEBU. NEB ×2 (07:37→18:15)
[2017-10-16 07:48] LABS: POC GLUCOSE 108 mg/dL (70-99)
[2017-10-16] MEDS: methylPREDNISolone SOD SUCC PF 40 MG/ML VIAL. IV ×2 (10:20→20:16)
[2017-10-16] MEDS: AZITHROMYCIN 250 MG TABLET. PO (10:20)
[2017-10-16] MEDS: BENZONATATE 100 MG CAPSULE. PO ×3 (10:21→20:16)
[2017-10-16] MEDS: POTASSIUM CHLORIDE 20 MEQ TABLET.ER. PO (10:21)
[2017-10-16] MEDS: LACTOBACILLUS RHAMNOSUS GG 1 CAPSULE. PO ×2 (10:21→20:16)
[2017-10-16 11:27] LABS: POC GLUCOSE 132 mg/dL (70-99)
[2017-10-16] MEDS: PROMETH/CODEINE 6.25/10MG 5 ML SYRUP. PO ×2 (13:29→22:36)
[2017-10-16 16:44] LABS: POC GLUCOSE 156 mg/dL (70-99)
[2017-10-16 23:27] LABS: POC GLUCOSE 126 mg/dL (70-99)
[2017-10-17] MEDS: PROMETH/CODEINE 6.25/10MG 5 ML SYRUP. PO ×3 (03:50→20:21)
[2017-10-17 04:50] LABS: HEMOGLOBIN 12.7 g/dL (12.0-15.5); MEAN CORPUSCULAR HEMOGLOBIN 31 pg (25-35); MEAN CORPUSCULAR HGB CONC 34 g/dL (31-37); MEAN CORPUSCULAR VOLUME 93 fL (79-100); PLATELET COUNT 171 x10^3/uL (140-400); RED BLOOD COUNT 4.11 x10^6/uL (3.50-5.40); RED CELL DISTRIBUTION WIDTH 13.8 % (11.5-14.5); WHITE BLOOD COUNT 12.3 x10^3/uL (4.0-11.0)
[2017-10-17 05:29] LABS: ALBUMIN/GLOBULIN RATIO 0.9 (1.0-1.7); ALK PHOS 55 U/L (46-116); ALT (SGPT) 23 U/L (14-59); ANION GAP 9 (6-14); AST (SGOT) 19 U/L (15-37); BLOOD UREA NITROGEN 14 mg/dL (7-20); BUN/CREATININE RATIO 23 (6-20); CALCIUM 8.6 mg/dL (8.5-10.1); CARBON DIOXIDE 28 mmol/L (21-32); CHLORIDE 103 mmol/L (98-107); CREATININE 0.6 mg/dL (0.6-1.0); GFR 106.7; GLUCOSE 147 mg/dL (70-99); POTASSIUM 4.7 mmol/L (3.5-5.1); SODIUM 140 mmol/L (136-145); TOTAL BILIRUBIN 0.2 mg/dL (0.2-1.0); TOTAL PROTEIN 6.3 g/dL (6.4-8.2)
[2017-10-17] MEDS: INSULIN LISPRO 300 UNITS/3 ML INSULN.PEN. SQ ×4 (07:30→20:55)
[2017-10-17] MEDS: BUDESONIDE 0.5 MG/2 ML NEBU. NEB ×2 (07:35→20:31)
[2017-10-17] MEDS: IPRATRPIUM/ALBUTEROL 0.5/2.5MG 3 ML NEBU. NEB ×4 (07:35→20:31)
[2017-10-17] MEDS: POTASSIUM CHLORIDE 20 MEQ TABLET.ER. PO (08:00)
[2017-10-17 08:28] LABS: POC GLUCOSE 123 mg/dL (70-99)
[2017-10-17] MEDS: LACTOBACILLUS RHAMNOSUS GG 1 CAPSULE. PO ×2 (08:38→20:21)
[2017-10-17] MEDS: methylPREDNISolone SOD SUCC PF 40 MG/ML VIAL. IV (08:38)
[2017-10-17] MEDS: AZITHROMYCIN 250 MG TABLET. PO (08:38)
[2017-10-17] MEDS: BENZONATATE 100 MG CAPSULE. PO ×3 (08:38→20:21)
[2017-10-17] MEDS: guaiFENesin DM 200MG/20MG 10 ML SYRUP PO (08:39)
[2017-10-17 11:36] LABS: POC GLUCOSE 83 mg/dL (70-99)
[2017-10-17] MEDS: methylPREDNISolone SOD SUCC PF 125 MG/2 ML VIAL. IV ×2 (13:53→21:47)
[2017-10-17 16:31] LABS: POC GLUCOSE 191 mg/dL (70-99)
[2017-10-17] MEDS: HYDROcodone/CHLORPHEN POLIS 5 ML SUS.ER.12H PO (17:10)
[2017-10-17 20:41] LABS: POC GLUCOSE 153 mg/dL (70-99)
[2017-10-18] MEDS: methylPREDNISolone SOD SUCC PF 125 MG/2 ML VIAL. IV (05:45)
[2017-10-18] MEDS: INSULIN LISPRO 300 UNITS/3 ML INSULN.PEN. SQ ×3 (07:30→16:30)
[2017-10-18 07:53] LABS: POC GLUCOSE 130 mg/dL (70-99)
[2017-10-18] MEDS: IPRATRPIUM/ALBUTEROL 0.5/2.5MG 3 ML NEBU. NEB ×4 (07:53→15:20)
[2017-10-18] MEDS: BUDESONIDE 0.5 MG/2 ML NEBU. NEB (07:53)
[2017-10-18] MEDS: AZITHROMYCIN 250 MG TABLET. PO (09:16)
[2017-10-18] MEDS: BENZONATATE 100 MG CAPSULE. PO ×2 (09:16→14:00)
[2017-10-18] MEDS: LACTOBACILLUS RHAMNOSUS GG 1 CAPSULE. PO (09:16)
[2017-10-18] MEDS: POTASSIUM CHLORIDE 20 MEQ TABLET.ER. PO (09:17)
[2017-10-18 11:29] LABS: POC GLUCOSE 121 mg/dL (70-99)
[2017-10-18] MEDS ORDERED: ALBUTEROL SULFATE 2.5 MG/3 ML NEBU. NEB (15:00)
[2017-10-18] MEDS: ENOXAPARIN 40 MG/0.4 ML SYRINGE. SQ (15:30)
[2017-10-18 17:00] LABS: POC GLUCOSE 101 mg/dL (70-99)
[2017-10-18] MEDS ORDERED: FAMOTIDINE 20 MG TABLET. PO (21:00)
[2017-10-18] MEDS ORDERED: DOXYCYCLINE HYCLATE 100 MG TABLET PO (21:00)
[2017-10-19] MEDS ORDERED: predniSONE 10 MG TABLET PO (09:00)
== END 2017-10-18 19:04 | disposition home or self-care (01) | DRG 871 ==
LOC: 5 SOUTH 23:00 → ER 19:40 → 5 SOUTH 21:15
DX: A41.9 Sepsis, unspecified organism (principal); J18.9 Pneumonia, unspecified organism; J96.01 Acute respiratory failure with hypoxia; E87.2 Acidosis; J44.0 Chronic obstructive pulmonary disease with (acute) lower respiratory infection; J44.1 Chronic obstructive pulmonary disease with (acute) exacerbation; F17.210 Nicotine dependence, cigarettes, uncomplicated; J20.9 Acute bronchitis, unspecified; E87.6 Hypokalemia; Z98.51 Tubal ligation status; Z88.1 Allergy status to other antibiotic agents; Z88.7 Allergy status to serum and vaccine
CPT/HCPCS: 36415; 71046; 71250; 76641; 80048; 80053; 81001; 82962; 83605; 84484; 85007; 85025; 85027; 87040; 93005; 94618; 94640; 94760; 96365; 96366; 96375; 99285; 99285-25; J0690; J1815; J2270; J2405; J2920; J2930; J7030; J7613; J7620; J7626; Q0144

== ENCOUNTER 2017-10-31 20:55 | Emergency (ER) | payer BC ==
[2017-10-31 21:35] LABS: ADD MAN DIFF? NO
[2017-10-31 21:38] LABS: BASO % 0 % (0-3); EOS # 0.1 x10^3/uL (0.0-0.7); EOS % 1 % (0-3); HEMATOCRIT 37.1 % (36.0-47.0); HEMOGLOBIN 12.6 g/dL (12.0-15.5); LYMPH # 1.8 x10^3/uL (1.0-4.8); LYMPH % 26 % (24-48); MEAN CORPUSCULAR HEMOGLOBIN 32 pg (25-35); MEAN CORPUSCULAR HGB CONC 34 g/dL (31-37); MEAN CORPUSCULAR VOLUME 93 fL (79-100); MONO # 0.9 x10^3/uL (0.0-1.1); MONO % 13 % (0-9); NEUT # 4.3 x10^3uL (1.8-7.7); NEUT % 60 % (31-73); PLATELET COUNT 199 x10^3/uL (140-400); RED BLOOD COUNT 4.01 x10^6/uL (3.50-5.40); RED CELL DISTRIBUTION WIDTH 13.9 % (11.5-14.5); WHITE BLOOD COUNT 7.1 x10^3/uL (4.0-11.0)
[2017-10-31] MEDS: IPRATRPIUM/ALBUTEROL 0.5/2.5MG 3 ML NEBU. NEB (21:43)
[2017-10-31 21:46] LABS: INR 0.9 (0.8-1.1)
[2017-10-31 21:48] LABS: ANION GAP 7 (6-14); BLOOD UREA NITROGEN 17 mg/dL (7-20); BUN/CREATININE RATIO 28 (6-20); CALCIUM 8.3 mg/dL (8.5-10.1); CARBON DIOXIDE 28 mmol/L (21-32); CHLORIDE 104 mmol/L (98-107); CREATININE 0.6 mg/dL (0.6-1.0); GFR 106.7; GLUCOSE 91 mg/dL (70-99); POTASSIUM 3.8 mmol/L (3.5-5.1); SODIUM 139 mmol/L (136-145)
[2017-10-31] MEDS: methylPREDNISolone SOD SUCC PF 125 MG/2 ML VIAL. IV (21:48)
[2017-10-31] MEDS: IV NORMAL SALINE 1000ML BAG 1,000 ML IV (21:48)
[2017-10-31 21:49] LABS: D-DIMER < 0.27 ug/mlFEU (0.00-0.50)
[2017-10-31 21:55] LABS: ALK PHOS 54 U/L (46-116); ALT (SGPT) 22 U/L (14-59); AST (SGOT) 13 U/L (15-37); TOTAL BILIRUBIN 0.3 mg/dL (0.2-1.0); TOTAL PROTEIN 5.9 g/dL (6.4-8.2)
[2017-10-31 21:56] LABS: TROPONINI < 0.017 ng/mL (0.000-0.055)
[2017-10-31 22:02] LABS: LACTIC ACID 0.9 mmol/L (0.4-2.0)
[2017-10-31 22:04] LABS: CKMB MASS 1.1 ng/mL (0.0-3.6); CREATINE KINASE 49 U/L (26-192)
[2017-10-31 22:04] LABS: NT-PRO BNP 316 pg/mL (0-124)
== END 2017-10-31 23:26 | disposition home or self-care (01) ==
LOC: ER 20:55
DX: J44.1 Chronic obstructive pulmonary disease with (acute) exacerbation (principal); F17.210 Nicotine dependence, cigarettes, uncomplicated; Z98.51 Tubal ligation status; Z88.1 Allergy status to other antibiotic agents; Z88.7 Allergy status to serum and vaccine; Z91.012 Allergy to eggs
CPT/HCPCS: 36415; 71045; 80053; 82553; 83605; 83880; 84484; 85025; 85379; 85610; 93005; 94640; 96374; 99285-25; J2930; J7030; J7620

== ENCOUNTER 2018-02-19 14:51 | Emergency (ER) | payer BC ==
[~2018-02-19] VITALS: Ht 170.2 cm; Wt 77.1 kg
[~2018-02-19 14:51] MED LIST changes: +AZIT250T6 PO; +BENZ-8 PO; -BENZ100C15 PO; +DOXY100T PO; +FLUT1DIS3 IH; +IBUP-1027 PO; +IPRA3AMP29 NEB; +METH4TAB2 PO; +NAPR-514 PO; -NAPR500T3 PO; +PRED-220 PO
[2018-02-19 15:02] VITALS: BP 114/61
[2018-02-19] MEDS ORDERED: DIPHTH,PERTUSS(ACELL),TET TOX 0.5 ML DISP.SYRIN. VAX IM ONE (15:15)
[2018-02-19] MEDS ORDERED: NEOMY/BACITR/POLYMYXIN OINT PACKET. TP ONE (15:15)
[2018-02-19] MEDS ORDERED: LIDOCAINE 1% PF 2 ML VIAL. INJ ONE (15:30)
--- NOTE | 2018-02-19 16:35 | PHYS DOC ---
Past Medical History Past Medical History: COPD, Pneumonia, Other Additional Past Medical Histor: bilat chest tubes. trauma with ribs and trunk Past Surgical History: Tubal ligation, Other Additional Past Surgical Histo: Hip surgery, Rib resection left Alcohol Use: None Drug Use: None Adult General Chief Complaint Chief Complaint: LACERATION/AVULSION HPI HPI Patient is a 47 year old female who presents to the ER with complaints of a laceration to her 3rd finger of her right hand. Pt states she was cutting apart frozen ribs with a sharp knife when she accidentally cut herself. She denies any numbness, tingling, or reduced ROM of the affected finger. Pt is unsure of when her last Tdap was. Currently, she rates her pain an 8 out of 10 on the pain scale. Review of Systems Review of Systems Constitutional: Denies fever or chills [] Musculoskeletal: Denies back pain or joint pain [] Integument: Denies rash, reports V shaped laceration to posterior right 3rd digit Neurologic: Denies headache, focal weakness or sensory changes [] All other systems were reviewed and found to be within normal limits, except as documented in this note. Current Medications Current Medications Current Medications Medications (Trade) Dose Ordered Sig/Marisela Start Time Stop Time Status Last Admin Dose Admin Diphtheria/ Tetanus/Acell Pertussis (Boostrix) 0.5 ml ONCE ONCE 02/19/18 15:15 02/19/18 15:16 DC 02/19/18 15:32 0.5 ML Lidocaine HCl (Xylocaine-Mpf 1% 2ml Vial) 4 ml 1X ONCE 02/19/18 15:30 02/19/18 15:31 DC 02/19/18 16:34 4 ML Neomycin/ Polymyxin/ Bacitracin (Triple Antibiotic Ointment) 1 pkt 1X ONCE 02/19/18 15:15 02/19/18 15:16 DC 02/19/18 16:33 1 PKT Allergies Allergies Allergies Coded Allergies Type Severity Reaction Last Updated Verified egg Allergy Severe 10/15/17 Yes influenza virus vaccine, specific Allergy Severe Anaphylaxis 06/08/13 Yes amoxicillin Allergy Intermediate 09/10/16 Yes Physical Exam Physical Exam Constitutional: Well developed, well nourished, no acute distress, non-toxic appearance. [] HENT: Normocephalic, atraumatic, bilateral external ears normal, nose normal. [] Eyes: PERRLA, conjunctiva normal, no discharge. [] Skin: Warm, dry, no erythema, no rash; 1.5 x 1.5 cm V shaped laceration distal to DIP of posterior 3rd digit of R hand, no active bleeding, [] Extremities: No tenderness, no cyanosis, no clubbing, ROM intact, no edema. [] Neurologic: Alert and oriented X 3, normal motor function, normal sensory function, no focal deficits noted. [] Psychologic: Affect normal, judgement normal, mood normal. [] Current Patient Data Vital Signs Vital Signs Date Time Temp Pulse Resp B/P (MAP) Pulse Ox O2 Delivery O2 Flow Rate FiO2 02/19/18 15:02 98.0 111 16 114/61 (78) 97 Room Air 98.0 EKG EKG [] Radiology/Procedures Radiology/Procedures Laceration Repair by me: Anesthesia: 1% lidocaine locally Location: 3rd digit of r hand Tendon/Joint/Nerves: No injury Foreign body: None detected after copious irrigation and exploration with 125 ml of NS Technique: 9 Simple Interrupted Sutures with 4-0 ethilon Complexity: No subcutaneous sutures/mucosal repair/edge excision Post Closure Length: 3 cm Patient's bleeding was easily controlled in the department and there is no indication of anemia. No evidence of compartment syndrome, neurologic injury, vascular injury, open joint, tendon laceration, or foreign body. Patient is appropriate for outpatient follow up. 48 hour wound check. Scar minimization instructions given.[] Course & Med Decision Making Course & Med Decision Making Pertinent Labs and Imaging studies reviewed. (See chart for details) Dx: laceration of 3rd digit of R hand Pt was given Tdap in ER. Laceration repair as documented above. Dressing and aluminum finger splint applied by nursing staff. Tylenol or ibuprofen prn pain, sutures out in 10 days. Patient verbalized an understanding of home care, medications, follow-up, and return to ED instructions and was in agreement with the plan of care. [] Dragon Disclaimer Dragon Disclaimer This electronic medical record was generated, in whole or in part, using a voice recognition dictation system. Departure Departure Impression: Primary Impression: Laceration of right middle finger w/o foreign body w/o damage to nail Disposition: HOME, SELF-CARE Condition: STABLE Referrals: MARY ANNE DEGROOT MD (PCP) Patient Instructions: Laceration Care, Adult, [id number] Additional Instructions: Keep area clean and dry. Leave the dressing that was placed in ER on for the next 24 hours, then change the dressing at least twice daily and apply antibiotic ointment to site. Wear the finger splint that was provided until sutures are removed. Follow up with your PCP or return to the ER in 10 days for suture removal. Splinting Splinting : Location: R hand 3rd digit Pre-Made Type: metal Splint: aluminum finger splint Pre-Proc Neuro Vasc Exam: normal Post-Proc Neuro Vasc Exam: normal, unchanged from pre-exam Problem Qualifiers Primary Impression: Laceration of right middle finger w/o foreign body w/o damage to nail Encounter type: initial encounter Qualified Codes: S61.212A - Laceration without foreign body of right middle finger without damage to nail, initial encounter JONATAN CHONG METHODS SPECIALIST ENGINEER Feb 19, 2018 16:35
== END 2018-02-19 16:40 | disposition home or self-care (01) ==
LOC: ER 14:51
DX: S61.212A Laceration without foreign body of right middle finger without damage to nail, initial encounter (principal); J44.9 Chronic obstructive pulmonary disease, unspecified; Z98.51 Tubal ligation status; Z88.7 Allergy status to serum and vaccine; Z88.1 Allergy status to other antibiotic agents; Z91.012 Allergy to eggs; W26.0XXA Contact with knife, initial encounter; Y93.89 Activity, other specified; Y92.89 Other specified places as the place of occurrence of the external cause; Y99.8 Other external cause status
CPT/HCPCS: 12002; 29130; 90471; 90715; 99283

== ENCOUNTER → 2021-03-07 | Outpatient (CLI) | payer BC ==
[2020-09-23 11:00] VITALS: BP 118/70
[~2021-03-07] MED LIST changes: -DOXY100C2 PO; +DOXY100C3 PO; +HYDR-3164 PO; -HYDR-971 PO
--- NOTE | 2021-03-07 14:46 | KCIC ---
XR CHEST 2V CLINICAL INDICATIONS: Reason: PNEUMONIA OF LOWER LOBE DUE TO INFECTIOUS ORGANISM, COUGH, shortness of air 3 DAYS / Spl. Instructions: / History: COMPARISON: September 22, 2020. Findings: Chronic bronchitis is seen bilaterally. There is chronic left lateral pleural thickening in association with an old left healed ninth rib fracture. No new lung consolidation or pleural effusio n or pulmonary edema or lung mass or pneumothorax is seen. The heart size, pulmonary vasculature, me diastinum and both wen are unremarkable. IMPRESSION: No new radiographic abnormality is seen. Electronically signed by: Robert Munoz MD (03/07/2021 2:43 PM) [id number]
== END ==
LOC: KCIC 09:22
PROVIDERS: ATTEND Nurse Practitioner
DX: J92.9 Pleural plaque without asbestos (principal); J42 Unspecified chronic bronchitis; J18.9 Pneumonia, unspecified organism
CPT/HCPCS: 71046

== ENCOUNTER → 2021-06-04 | Outpatient (CLI) | payer BC ==
[2021-04-28 11:00] VITALS: BP 113/60
[~2021-06-04] MED LIST changes: +CIPR500T94 PO
--- NOTE | 2021-06-04 16:20 | KCIC ---
Bilateral digital screening mammograms: Reason for examination: Routine screening. Comparison is made to previous study dated 11/04/2017. Interpretation was made with the benefit of CAD. The skin and nipples show no abnormalities. No abnormal axillary lymph nodes are seen. The breast par enchyma shows scattered fibroglandular density. (Breast density: Category B.) There has been interval decrease in size of the circumscribed nodule seen posteriorly at the 9:00 position of the right nolberto st with a regressing cyst. There is a rim calcified nodule also present at the 10:00 B position consi stent with some cystic fat necrosis. There continues to be a small circumscribed nodule consistent wi th an intramammary lymph node at the 10:00 C position of the right breast which is stable. There are no new dominant masses, suspicious calcifications or architectural distortions. Impression: No evidence of malignancy. Recommend routine screening. BI-RADS Category 2: Benign. "Our facility is accredited by the [employer] Mammography Program." This patient's information has been entered into a reminder system for the patient to be notified wit h the results of her examination and a target date for the next mammogram. Electronically signed by: Yue Blancas MD (06/04/2021 4:18 PM) [id number]
== END ==
LOC: KCIC MAMMO 15:47
PROVIDERS: ATTEND Family Medicine
DX: Z12.31 Encounter for screening mammogram for malignant neoplasm of breast (principal)
CPT/HCPCS: 77067